=== PATIENT | female | born 1970 ===

== ENCOUNTER 2020-08-22 08:57 | Day surgery (SDC) | payer OTHER ==
[~2020-08-22 08:57] MED LIST: AMBIEN10 MG PO; BUSPAR PO; SEROQUEL XR400 MG PO; ZOLOFT100 MG PO
[2020-08-22] MEDS ORDERED: NAPR500T14 PO (15:26)
[2020-08-22] MEDS ORDERED: MORGIDOX100 MG PO (15:26)
== END 2020-08-22 19:02 | disposition home or self-care (01) ==
LOC: CIR.AMB 08:57
PROVIDERS: ATTEND Obstetrics & Gynecology
DX: N84.0 Polyp of corpus uteri (principal); D25.0 Submucous leiomyoma of uterus; Z20.822 Contact with and (suspected) exposure to COVID-19